=== PATIENT | female | born 1950 | race Caucasian/White ===

== ENCOUNTER 2016-08-27 17:52 | Observation (INO) | payer MEDICARE, OTHER ==
--- NOTE | 2016-08-27 18:50 | EDPHY ---
H & P Stated Complaint: blk tarry stool for 2 days Time Seen by Provider: 08/27/16 18:49 - Personal History Current Tetanus/Diphtheria Vaccine: Yes Current Tetanus Diphtheria and Acellular Pertussis (TDAP): Yes Tetanus Vaccine Date: 2014 - Medical/Surgical History Hx Asthma: No Hx Chronic Respiratory Disease: Yes Hx Diabetes: No Hx Cardiac Disease: Yes Hx Renal Disease: Yes Hx Cirrhosis: No Hx Alcoholism: No Hx HIV/AIDS: No Hx Splenectomy or Spleen Trauma: No Other PMH: PMH- HTN, CHRONIC PAIN TO BACK/KNEES, THORACIC OUTLET SYNDROME (86), "SLOW KIDNEYS". PSH- RIB REMOVED, Right ankle plates placed, - Social History Smoking Status: Never smoked Constitutional: Initial Vital Signs Temperature (C) 36.6 C 08/27/16 17:54 Heart Rate 102 H 08/27/16 17:54 Respiratory Rate 16 08/27/16 17:54 Blood Pressure 150/82 H 08/27/16 17:54 O2 Sat (%) 92 08/27/16 17:54 O2 Delivery Mode Room Air Allergies/Adverse Reactions: Sulfa (Sulfonamide Antibiotics) Allergy (Mild, Verified 07/24/15 17:15) Rash Penicillins Allergy (Verified 11/19/14 12:33) phenol Allergy (Verified 11/19/14 12:33) Home Medications: Medication Instructions Recorded Aspirin/Caffeine [Jovanny Back & 2 each PO TID PRN 11/19/14 Body Caplet] Melatonin [Melatonin 3 MG (*)] 3 - 9 mg PO HS PRN 07/14/15 Pseudoephedrine HCl [Sudafed 30mg 60 mg PO Q4 PRN 07/14/15 (OTC)] Methocarbamol [Robaxin 750 mg (*)] 750 mg PO Q8 PRN #20 tab 07/17/15 Multivitamins [Multivitamin (*)] 1 each PO DAILY 07/24/15 Bee-3 Fatty Acids [Fish Oil 1000 1,000 mg PO DAILY 07/24/15 mg (*)] Tears/Hypromellose [Natural 1 - 2 drops EACHEYE DAILY PRN 07/24/15 Balance] Acetaminophen [Tylenol 325mg (*)] 650 mg PO Q4 PRN #0 tab 07/27/15 Ascorbic Acid [Vitamin C 500 mg 500 mg PO DAILY #0 tab 07/27/15 (*)] Furosemide [Lasix] 40 mg PO DAILY #30 tab 07/27/15 Iron/Docusate Sodium 1 each PO BIDMEAL #0 tab 07/27/15 [Dariela-Sequels 50 mg] Lisinopril [Zestril 5 mg (*)] 5 mg PO DAILY #30 tab 07/27/15 Potassium Chloride [Klor-Con 10] 10 meq PO DAILY #30 tablet.er 07/27/15 Medical Decision Making ED Course/Re-evaluation: CHIEF COMPLAINT: Black tarry diarrhea. HISTORY OF PRESENT ILLNESS: The patient is a 65-year-old female who presents with black tarry stool for 2 days and diarrhea today. She denies vomiting or abdominal pain. She did have an episode of abdominal pain 4 days ago that resolved. She takes 1000mg Aspirin once or twice a day. REVIEW OF SYSTEMS: A 10 point review of systems was performed and is negative with the exception of the elements mentioned in the history of present illness. PHYSICAL EXAM: HR, BP, O2 Sat, RR. Temp noted General Appearance: Alert, well hydrated, appropriate, and non-toxic appearing. Head: Atraumatic without scalp tenderness or obvious injury Eyes: Pupils equal, round, reactive to light and accommodation, EOMI, no trauma , no injection. Ears: Clear bilaterally, no perforation, normal landmarks Nose: Atraumatic, no rhinorrhea, clear. Throat: There is no erythema or exudates, no lesions, normal tonsils, mucus membranes moist. Neck: Supple, 2+ carotid upstroke, nontender, no lymphadenopathy. Respiratory: No retractions, no distress, no wheezes, and no accessory muscle use. Lungs are clear to auscultation bilaterally. Cardiovascular: Regular rate and rhythm, no murmurs, rubs, or gallops. Bilateral carotid, radial, dorsalis pedis, and posterior tibial pulses intact. Good capillary refill all extremities. Gastrointestinal: Abdomen is soft, nontender, non-distended, no masses, no rebound, no guarding, no peritoneal signs. Musculoskeletal: Normal active ROM of all extremities, atraumatic. Neurological: Alert, appropriate, and interactive. The patient has normal DTRs and non-focal cranial nerves, motor, sensory, and cerebellar exam. Skin: No rashes, good turgor, no nodules on palpation. Past medical history: HTN, chronic pain, thoracic outlet syndrome, Past surgical history: Rib removal, Right ankle plates placed. Family history: Non-contributory. Social history:Here alone. DIAGNOSTICS/PROCEDURES/CRITICAL CARE TIME: DIFFERENTIAL DIAGNOSIS: The differential diagnosis for the patient's upper GI bleeding included but was not limited to ulcer disease, gastritis, Seda-Sanabria tear, and esophageal varices. MEDICAL DECISION MAKING: The patient is a 65 y/o female presenting with 2 days of black stool and diarrhea today. She reports that at least over last week she was taking 1000mg Aspirin tablets once or twice per day. I have a high suspicion for upper GI bleed. A stool sample will be sent when she is able. An IV was established and labs ordered. 1L IV saline administered for hydration in addition to 40mg IV Protonix. Patient shows 10-15 RBCs in her urine but there is no indication for treatment of this. Patient's CBC is normal. Specifically, her Hct is negative. 194: Consulted with Dr. Savage, hospitalist. She accepts admission. - Data Points Laboratory Results: Laboratory Results 08/27/16 18:18 08/27/16 08/27/16 18:18 17:00 WBC 9.53 H 10^3/uL (3.80-9.50) RBC 4.78 10^6/uL (4.18-5.33) Hgb 12.5 L g/dL (12.6-16.3) Hct 40.2 % (38.0-47.0) MCV 84.1 fL (81.5-99.8) MCH 26.2 L pg (27.9-34.1) MCHC 31.1 L g/dL (32.4-36.7) RDW 14.5 % (11.5-15.2) Plt Count 347 10^3/uL (150-400) MPV 10.1 fL (8.7-11.7) Neut % (Auto) 71.4 % (39.3-74.2) Lymph % (Auto) 22.8 % (15.0-45.0) [place] % (Auto) 3.8 L % (4.5-13.0) Eos % (Auto) 0.9 % (0.6-7.6) Baso % (Auto) 0.6 % (0.3-1.7) Nucleat RBC Rel Count 0.0 % (0.0-0.2) Absolute Neuts (auto) 6.80 H 10^3/uL (1.70-6.50) Absolute Lymphs (auto) 2.17 10^3/uL (1.00-3.00) Absolute Monos (auto) 0.36 10^3/uL (0.30-0.80) Absolute Eos (auto) 0.09 10^3/uL (0.03-0.40) Absolute Basos (auto) 0.06 10^3/uL (0.02-0.10) Absolute Nucleated RBC 0.00 10^3/uL (0-0.01) Immature Gran % 0.5 % (0.0-1.1) Immature Gran # 0.05 10^3/uL (0.00-0.10) PT 13.3 SEC (12.0-15.0) INR 1.02 (0.83-1.16) APTT 34.3 SEC (23.0-38.0) Sodium Pending Potassium Pending Chloride Pending Carbon Dioxide Pending Anion Gap Pending BUN Pending Creatinine Pending Estimated GFR Pending Glucose Pending Calcium Pending Total Bilirubin Pending Conjugated Bilirubin Pending Unconjugated Bilirubin Pending AST Pending ALT Pending Alkaline Phosphatase Pending Total Protein Pending Albumin Pending Lipase Pending Urine Color YELLOW Urine Appearance CLEAR Urine pH 8.0 H (5.0-7.5) Ur Specific Justice 1.019 (1.002-1.030) Urine Protein NEGATIVE (NEGATIVE) Urine Ketones NEGATIVE (NEGATIVE) Urine Blood 2+ H (NEGATIVE) Urine Nitrate NEGATIVE (NEGATIVE) Urine Bilirubin NEGATIVE (NEGATIVE) Urine Urobilinogen NEGATIVE EU (0.2-1.0) Ur Leukocyte Esterase NEGATIVE (NEGATIVE) Urine RBC 10-15 H /hpf (0-3) Urine WBC 1-3 /hpf (0-3) Ur Epithelial Cells TRACE /lpf (NONE-1+) Urine Mucus TRACE /lpf (NONE-1+) Ur Culture Indicated? NOT INDICATED (NI) Urine Glucose NEGATIVE (NEGATIVE) Departure - Departure Disposition: [facility] Inpatient Acute Clinical Impression: Upper GI bleed Condition: Fair Report Scribed for: Shlomo Alexander Report Scribed by: Trever Jaime Date of Report: 08/27/16 Time of Report: 18:51
[2016-08-27] MEDS ORDERED: NS 1,000 ML IV ONE (18:51)
[2016-08-27] MEDS ORDERED: PANTOPRAZOLE SODIUM 40 MG in NS 100 ML IV ONE (19:03)
[2016-08-27 19:13] LABS: COLOR YELLOW; LEUKOCYTE ESTERASE,URINE NEGATIVE (NEGATIVE); NITRITE,URINE NEGATIVE (NEGATIVE)
[2016-08-27 19:19] LABS: MUCUS TRACE /lpf (NONE-1+)
[2016-08-27] MEDS ORDERED: PANTOPRAZOLE SODIUM 40 MG VIAL ONE (19:19)
[2016-08-27] MEDS ORDERED: NS 100 ML BAG IV ONE (19:20)
[2016-08-27 19:29] LABS: % IMMATURE GRANULYOCYTES 0.5 % (0.0-1.1); ABSOLUTE IMMATURE GRANULOCYTES 0.05 10^3/uL (0.00-0.10); ADD DIFF? NO; ADD MORPH? NO; ADD SCAN? NO; ATYPICAL LYMPHOCYTE FLAG 0 (0-99); FRAGMENT RBC FLAG 0 (0-99); HEMATOCRIT 40.2 % (38.0-47.0); HEMOGLOBIN 12.5 g/dL (12.6-16.3); LEFT SHIFT FLG 0 (0-99); LIPEMIA HEMOLYSIS FLAG 80 (0-99); MEAN CELL HEMOGLOBIN 26.2 pg (27.9-34.1); MEAN CELL HEMOGLOBIN CONCENTR. 31.1 g/dL (32.4-36.7); MEAN CELL VOLUME 84.1 fL (81.5-99.8); MEAN PLATELET VOLUME 10.1 fL (8.7-11.7); PLATELET CLUMPS FLAG 0 (0-99); PLATELET COUNT 347 10^3/uL (150-400); RED BLOOD CELL COUNT 4.78 10^6/uL (4.18-5.33); RED CELL DISTRIBUTION WIDTH 14.5 % (11.5-15.2)
[2016-08-27 19:38] LABS: INR 1.02 (0.83-1.16); PROTIME(PATIENT) 13.3 SEC (12.0-15.0)
[2016-08-27 19:39] LABS: APTT 34.3 SEC (23.0-38.0)
[2016-08-27 19:43] LABS: ALANINE AMINOTRANSFERASE 27 IU/L (9-52); ALBUMIN 4.1 g/dL (3.5-5.0); ALKALINE PHOSPHATASE 111 IU/L (38-126); ANION GAP 13 mEq/L (8-16); ASPARTATE AMINOTRANSFERASE 21 IU/L (14-46); BILIRUBIN,TOTAL 0.6 mg/dL (0.1-1.4); BILIRUBIN-CONJUGATED 0.2 mg/dL (0.0-0.5); BILIRUBIN-UNCONJUGATED 0.4 mg/dL (0.0-1.1); CALCIUM 9.5 mg/dL (8.5-10.4); CARBON DIOXIDE 25 mEq/l (22-31); CHLORIDE 107 mEq/L (97-110); CREATININE 0.7 mg/dL (0.6-1.0); GLOMERULAR FILTRATION RATE > 60; GLUCOSE 104 mg/dL (70-100); POTASSIUM 4.3 mEq/L (3.5-5.2); SODIUM 145 mEq/L (134-144); TOTAL PROTEIN 7.1 g/dL (6.3-8.2)
[2016-08-27] MEDS ORDERED: NON-FORMULARY NEW DRUG (Tears/Hypromellose [Natural Balance] 0 DROPS) EACHEYE PRN (21:02)
--- NOTE | 2016-08-27 21:35 | GHP ---
[f rep st] HISTORY AND PHYSICAL DATE OF ADMISSION: 08/27/2016 CHIEF COMPLAINT: Black tarry stools. HISTORY OF PRESENT ILLNESS: The patient is a 65-year-old with multiple medical issues, including t-controlled diabetes, hypertension and arthritis, who comes in with black tarry stools. She states she has fairly severe osteoarthritis and chronic pain and she takes an aspirin compound that has 1000 mg of aspirin and caffeine up to twice a day. She is unable to tolerate nonsteroidal anti-inflammat ories because of swelling. She also notes she has been under a lot of stress lately. She lives up [place] n a [place] in [place] and told she has to move. Over the last 2 days, she has noted black tarry s tools and some slight epigastric pain and just to the left of center. This is associated with some b elching. She has had no emesis, no hematemesis, and no bright red blood per rectum. She denies weig ht changes, fevers, chills, chest pain, shortness of breath. She has chronic lower extremity edema w hich is unchanged and no urinary symptoms. REVIEW OF SYSTEMS: A 10-point review of systems was done and is negative except as stated in the HPI . PAST MEDICAL HISTORY: 1. Type 2 diabetes, diet controlled. 2. History of chronic anemia thought secondary to menorrhagia. Her last hemoglobin prior to this [facility] was normal at 15. 3. Morbid obesity. 4. Osteoarthritis involving multiple joints with chronic pain. 5. Chronic edema. PAST SURGICAL HISTORY: Includes a rib resection. FAMILY HISTORY: Reviewed and noncontributory. SOCIAL HISTORY: She is . She does not smoke and drinks alcohol occasionally. CURRENT MEDICATIONS: Include Lasix 40 mg daily and Robaxin 500 as needed. She takes Jovanny [employer] in Relief as noted in the HPI, iron, melatonin, potassium, and vitamin C. ALLERGIES: Penicillin. PHYSICAL EXAMINATION: VITAL SIGNS: She is afebrile. Heart rate 102, blood pressure 150/82, respira tions 16. She is 92% on room air. GENERAL: She is an obese 65-year-old woman. She is in no obviou s distress. She is alert and oriented. HEENT: Pupils are equal. Extraocular movements intact. Mu cous membranes are slightly dry. Oropharynx is clear. NECK: Supple. No adenopathy. No carotid br uits. HEART: Regular rate and rhythm. No murmurs, gallops, or rubs. LUNGS: Clear to auscultation . No wheeze, rhonchi, or rales. ABDOMEN: Obese, soft. No obvious tenderness or rebound or guardin g. Positive bowel sounds. EXTREMITIES: Positive edema bilaterally. MUSCULOSKELETAL: No obvious j oint deformities, but she is obese. NEUROLOGICALLY: She is grossly intact. SKIN: No rash. LABORATORY DATA: CBC shows a white count of 9.5, hemoglobin 12.5 and platelet count 347. Electrolyt es normal. BUN slightly elevated at 27. LFTs are normal. Urinalysis is unremarkable except for christian e mild hematuria. ASSESSMENT AND PLAN: 1. Tarry stools, high suspicion for upper GI (gastrointestinal) bleed given her chronic aspirin use. It does not appear that she has had a previous GI (gastrointestinal) workup after reviewing her out patient chart. Plan will be to admit her to the [facility]. She is hemodynamically stable. We will gentl y hydrate her overnight, place her on a PPI (proton pump inhibitor). I have consulted Dr. Mick granados and talked with him about the patient who plans on doing an endoscopy in the a.m. I will check ser ial hemoglobins and transfuse as needed, although currently her blood pressure is high and she does n ot appear unstable. 2. Mild hematuria. Will recheck this as an outpatient for followup once she is over her acute issue s. 3. Diet-controlled diabetes. 4. Chronic edema, currently on Lasix. Patient has held this when she started noting tarry stools. 5. DVT prophylaxis. Given likely acute bleeding, will defer chemical prophylaxis and start her on S CDs (sequential compression devices) if she has greater than 24-hour hospital stay. /[id number]/MODL
[2016-08-27 21:40] LABS: OCCULT BLOOD FECES POSITIVE (NEGATIVE)
[2016-08-27] MEDS ORDERED: MELATONIN 3 MG TAB PO SCH (23:00)
[2016-08-27] MEDS: PANTOPRAZOLE SODIUM 40 MG in NS 100 ML IV SCH (23:32)
[2016-08-27] MEDS: NS 1,000 ML IV SCH (23:32)
[2016-08-28 00:08] LABS: FECES WBC NONE SEEN (NONE SEEN)
[2016-08-28 00:09] LABS: FECES RBC 1+ (NONE SEEN); O/P DIRECT NONE SEEN (NONE SEEN)
[2016-08-28 00:53] LABS: HEMATOCRIT 33.7 % (38.0-47.0); HEMOGLOBIN 10.3 g/dL (12.6-16.3)
[2016-08-28 05:13] LABS: HEMATOCRIT 34.1 % (38.0-47.0); HEMOGLOBIN 10.4 g/dL (12.6-16.3)
[2016-08-28 05:42] LABS: ANION GAP 9 mEq/L (8-16); CALCIUM 8.8 mg/dL (8.5-10.4); CARBON DIOXIDE 24 mEq/l (22-31); CHLORIDE 111 mEq/L (97-110); CREATININE 0.7 mg/dL (0.6-1.0); GLOMERULAR FILTRATION RATE > 60; GLUCOSE 102 mg/dL (70-100); POTASSIUM 4.2 mEq/L (3.5-5.2); SODIUM 144 mEq/L (134-144)
[2016-08-28 08:07] VITALS: TEMP 97.9
[2016-08-28 08:28] LABS: CLOSTRIDIUM DIFFICILE DNA NEGATIVE (NEGATIVE)
[2016-08-28] MEDS: PANTOPRAZOLE SODIUM 40 MG in NS 100 ML IV SCH (09:15)
[2016-08-28 09:19] LABS: HEMATOCRIT 33.9 % (38.0-47.0); HEMOGLOBIN 10.6 g/dL (12.6-16.3)
[2016-08-28] MEDS: NS 1,000 ML IV SCH (09:23)
--- NOTE | 2016-08-28 10:11 | GCON ---
[f rep st] CONSULTATION DATE OF CONSULTATION: 08/28/[address] Savage: Thank you very kindly for asking me to evaluate this patient for melena. She is a pleasant, morbidly obese and diabetic 65-year-old female with underlying osteoarthritis, who presents to the ER with up per abdominal pain, some heartburn and dark black stools that have been present for about 3 days. He r stool frequency has been increased from her baseline of 2 bowel movements a day to between 3 and 4. The stool has been more loose, urgent, and dark and tarry. There has been upper abdominal discomfo rt described as gas pain that has been present about 3 days before the onset of the melena, and she h as also been describing some reflux symptoms which are unusual for her. She treats her osteoarthriti s symptoms with an aspirin compound with caffeine that contains a 1000 mg of aspirin. She has been t aking this up to twice a day. She has not had a previous gastrointestinal bleed. She denies any hea vy menstrual periods. There has been no bright red or maroon hematochezia. She denies nausea, vomit ing or hematemesis. Her initial hematocrit in the emergency room when she presented was 40.2, and phelan s cruzito this morning at 33.9. Her platelets and white count are normal. Her INR is 1.02. Her BUN i s elevated 27, with a normal creatinine. I am asked to assist with further evaluation and management . PAST MEDICAL HISTORY: Significant for morbid obesity, diabetes, chronic NSAID use, osteoarthritis. PAST SURGICAL HISTORY: Unremarkable. FAMILY HISTORY: Negative for anemia, bleeding disorders or peptic ulcer disease. SOCIAL HISTORY: The patient is . She lives in [place]. There is no tobacco or alcohol or aquino bstance abuse. MEDICATIONS: Include Lasix 40 mg a day, Robaxin 500 mg as needed for musculoskeletal pain, Jovanny Sandra ect Pain Relief 1000 mg of aspirin with caffeine up to twice a day, iron supplementation, melatonin, potassium and vitamin C. ALLERGIES: Penicillin. REVIEW OF SYSTEMS: CONSTITUTIONAL: Denies fatigue, malaise, night sweats, weight loss or fever. HE ENT: Denies headache, visual disturbances, sore throat, rhinorrhea or epistaxis. PULMONARY: No jorge rtness of breath. Denies dyspnea with exertion. Denies orthopnea. CARDIOVASCULAR: Denies chest pa in or palpitations. GASTROINTESTINAL: Per the HPI, otherwise negative. RHEUMATOLOGIC: Chronic tu nt pain in multiple locations including knees, hips, back, shoulders and hands. Denies joint swellin g or warmth. Denies joint deformity. DERMATOLOGIC: Negative for rash, pruritus or jaundice. ENDOC RINE: Denies heat or cold intolerance. No polyuria or polydipsia. GYNECOLOGIC: No vaginal bleedin g or discharge. GENITOURINARY: No flank pain or hematuria. PHYSICAL EXAM: VITAL SIGNS: Blood pressure 124/57 with a mean arterial pressure of 79, heart rate 8 8, respirations 16, oxygenation 93% on room air, temperature is 36.6. GENERAL: Comfortable, obese f emale, in no acute distress. Alert and able to provide her own history. HEENT: Normocephalic, atra umatic. Short neck. No carotid bruits or thyromegaly. LUNGS: Distant breath sounds throughout but no focal rales or wheeze. No accessory muscle use for respiration. Seems comfortable without dyspn ea. CARDIOVASCULAR: Regular rate and rhythm. No murmur rub or gallop. Heart sounds are distant. ABDOMEN: Obese and soft. No organomegaly, ascites, rebound or guarding. No surgical scars. EXTREM ITIES: Lower extremity edema that is pitting bilaterally. Pulses are 1+ dorsalis pedis. Negative f or calf tenderness. SKIN: Warm and dry without jaundice or cyanosis. NEUROLOGIC: Alert to person, place, and time. Cranial nerves grossly normal. Motor is nonfocal with good strength. Gait is not assessed/ LABORATORY DATA: Database includes hematocrit 33.9, from admission hematocrit of 40.2, white blood c ount 9.5, platelets 347. INR 1.02 with a PT of 13.3. Sodium 144, potassium 4.2, chloride 111, bicar bonate 24, BUN 21, creatinine 0.7, glucose 102, total bilirubin 0.6, with an alkaline phosphatase 111 , AST 21, ALT 27, albumin 4.1, lipase 57. Clostridium difficile toxin negative. H pylori IgG negati ve. Stool is positive for occult blood. IMPRESSION: 1. Upper abdominal pain, epigastric and left upper quadrant. 2. Heartburn. 3. Anemia secondary to what seems to be acute blood loss. 4. Melena. 5. Nonsteroidal anti-inflammatory drug use. 6. Morbid obesity. 7. Diabetes. RECOMMENDATIONS: 1. N.p.o. 2. Serial hematocrit. 3. Type and hold 2 units of packed cells. 4. Continuous Protonix infusion. 5. EGD with anesthesia assistance. The patient is at high risk for endoscopic intervention due to h er morbid obesity, body habitus and short neck. She is also on chronic NSAIDs and has underlying angie betes. All of these variables make endoscopy high risk for her and she will need anesthesia assistan mónica, who I have consulted to work with her for assisting with anesthesia supported EGD today. 6. Further recommendations to follow her endoscopic evaluation. /[id number]/MODL
[2016-08-28 10:42] LABS: O/P CONCENTRATION NONE SEEN (NONE SEEN)
[2016-08-28] MEDS ORDERED: MIDAZOLAM 2 MG/2 ML VIAL ONE (10:48)
[2016-08-28] MEDS ORDERED: PROPOFOL 200 MG/20 ML VIAL ONE (11:00)
--- NOTE | 2016-08-28 12:01 | GPN ---
[f rep st] PROCEDURE NOTE DATE OF PROCEDURE: 08/28/2016 PROCEDURE: Esophagogastroduodenoscopy. INDICATION: Melena, longstanding aspirin use, anemia secondary to acute blood loss. HAMMER SETTER: Endoscopy staff: Ree. ANESTHESIA: Dr. Johnson. COMPLICATIONS: None. ESTIMATED BLOOD LOSS: None. Consent was obtained from the patient after the risks and benefits, upper endoscopy and general anest hesia were discussed in detail. All questions were answered and informed consent was obtained. The patient was competent to make her own medical decisions. Monitoring is continuous per anesthesia pro tocol. Medications are general anesthesia via propofol monitored by Anesthesia. DESCRIPTION OF PROCEDURE: The patient was placed into the left lateral decubitus position with the h ead of the bed at 30 degrees. The oral bite block was placed. Monitoring was ensued. Oxygen was gi oli via nasal cannula. Propofol was given and the patient was appropriately sedated. When she was c omfortable, the Olympus endoscope was placed into the oropharynx which was endoscopically normal. Th e tubular esophagus was intubated easily under direct visualization and ultimately endoscope advanced into the 2nd portion of the duodenum. All mucosal surfaces were examined in their entirety includin g a retroflexed view of the gastric cardia. FINDINGS: The esophagus exhibited a nonocclusive Schatzki's ring and a very small scar at the GE alexa ction. With a little bit of retraction, it looked like a previous ulcer that had well healed. There was no active stigmata of bleeding from the scar site and no active ulceration. The remaining esoph rene was normal. The GE junction was at 38 cm and was a regular Z-line. The stomach exhibited multifocal peptic ulceration in the antrum. This was in a circumferential dist ribution around the pylorus. The deepest ulcer was about 1.2 cm x 1 cm in size. There were smaller shallow erosions and ulcerations around this deeper ulcer. There was no blood within the stomach wit h only bile seen. The ulcers were clean based without any stigmata of bleeding. The pylorus was nor mal and patent, as well as the pyloric channel. The duodenum was normal to the 2nd portion. There was some mild congestion and erythema within the d uodenal sweep, but no ulceration or active disease was seen in this area. The esophagus was normal other than a nonocclusive Schatzki ring and a previous scar may be from [facility] er a pill-induced esophagitis or reflux. The stomach exhibited a 1.2 x 1 cm clean based ulcer in the pre-pyloric area of the antrum with surro unding circumferential shallow ulcerations and injury without erosions. All these lesions were clean based without active bleeding. Bile was seen through the stomach. The pyloric channel was normal. There was mild congestion and erythema in the duodenal sweep, but there was no active ulceration. Th e remaining duodenum was normal. IMPRESSION: 1. I believe her melena and anemia are secondary to aspirin-induced peptic ulcer disease, predominan tly gastric ulceration and erosion. 2. Given her negative H pylori serology I did not believe these are H pylori related. 3. We can advance diet today as tolerated. 4. Discontinue serial hematocrits. 5. Begin twice daily proton-pump inhibitor therapy currently with pantoprazole 40 mg twice daily wit h bridge to whatever is most affordable by her insurance with treatment for 8 weeks. 6. Discontinue all aspirin products and NSAIDs. 7. Repeat upper endoscopy in 8 weeks to demonstrate healing of the gastric ulcerations. 8. The patient can be discharged home today if she is feeling well post procedure. /[id number]/MODL
[2016-08-28 13:18] VITALS: BP 122/63; PULSE 84; RESP 18; O2SAT 94
--- NOTE | 2016-08-28 14:41 | GDS ---
[f rep st] DISCHARGE SUMMARY DISCHARGE DIAGNOSES: 1. 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 2. Controlled type 2 diabetes mellitus. 3. Osteoarthritis. 4. Morbid obesity. OBSERVATION COURSE AND STAY BY PROBLEM: Melena due to aspirin-induced peptic ulcer disease: Patient was admitted to the hospital where she was seen in consultation [facility] who performed upper endoscopy which showed aspirin-induced peptic ulcer disease and gastric ulc erations and erosions that were not actively bleeding. The patient was subsequently recommended to s top aspirin. She was placed on b.i.d. Protonix which she should complete for 2 months followed by on ce a day treatment. She should also avoid NSAIDs. For osteoarthritis pain she was given a trial of Toradol. PHYSICAL EXAM ON DAY OF DISCHARGE: VITAL SIGNS: The patient was examined. Vital signs were stable. ABDOMEN: Soft, nontender, nondistended. No guarding or rebound tenderness. PROCEDURES DONE THIS HOSPITAL STAY: Upper endoscopy done 08/28/2016, refer to report. DISCHARGE MEDICATIONS: Please refer to discharge medication reconciliation in [facility] for full deta ils. Below is a preliminary list. New medications on hospital discharge: Protonix 40 mg twice daily, Ultram 50 mg p.o. q.i.d. p.r.n. p ain. DISCHARGE INSTRUCTIONS: The patient will be discharged from the hospital where she will need followu p of her biopsy results done by Dr. Horn. She should discuss further management of her osteoarthrit is pain with her primary care provider. /[id number]/MODL
[2016-08-28 18:10] LABS: O/P TRICHROME NONE SEEN (NONE SEEN)
[2016-08-28] MEDS ORDERED: PANTOPRAZOLE SODIUM 40 MG TAB PO SCH (21:00)
== END 2016-08-28 16:15 | disposition home or self-care (01) ==
LOC: F1N 21:41
PROVIDERS: ADMIT Internal Medicine; ATTEND Family Medicine
PROC: 0DJ68ZZ Inspection of Stomach, Via Natural or Artificial Opening Endoscopic (ICD-10-PCS; principal; 2016-08-28 10:30)
PROC: 0DJ08ZZ Inspection of Upper Intestinal Tract, Via Natural or Artificial Opening Endoscopic (ICD-10-PCS; principal; 2016-08-28 10:30)
DX: K25.7 Chronic gastric ulcer without hemorrhage or perforation (principal); T39.015A Adverse effect of aspirin, initial encounter; E11.9 Type 2 diabetes mellitus without complications; M19.90 Unspecified osteoarthritis, unspecified site; E66.01 Morbid (severe) obesity due to excess calories
CPT/HCPCS: 43200; G0378; J2250; J2704

== ENCOUNTER 2017-02-13 17:54 | Emergency (ER) | payer OTHER ==
[2017-02-13 18:01] VITALS: TEMP 98.4
--- NOTE | 2017-02-13 19:08 | EDPHY ---
H & P Stated Complaint: Rolling chair came out from under her on Mon;aches all over, no LOC/head inj Time Seen by Provider: 02/13/17 18:42 HPI/ROS: CHIEF COMPLAINT: fall out of chair HISTORY OF PRESENT ILLNESS: 66-year-old female presents to the emergency department complaining of left-sided back pain and left-sided neck pain after falling out of a rolling chair 2 days ago. Patient states she bent forward to get out of the chair and it slipped out from underneath her. She states she landed on her left side of butt and back. Patient reports the chair struck her in the left side of the head. She denies loss of consciousness, remembers the entire accident. Patient reports feeling "woozy" immediately after the accident. This lasted a couple minutes. Patient states her back pain and neck pain started yesterday and have continued today. She denies loss of control of her bowel or bladder, no numbness or tingling in her arms or legs. She denies chest pain, abdomen pain or pelvis pain. She denies other complaints. Patient reports she is taking Tylenol which is helping mildly. REVIEW OF SYSTEMS: A comprehensive 10 point review of systems is otherwise negative aside from elements mentioned in the history of present illness. 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 PSH- RIB REMOVED, Right ankle plates placed, - Social History Smoking Status: Never smoked - Physical Exam Exam: General Appearance: Alert, no distress, talking appropriately, comfortable. Head: Atraumatic without scalp tenderness or obvious injury Eyes: Pupils equal, round, reactive to light, EOMI, no trauma, no injection. Ears: Clear bilaterally, no perforation, no hemotympanum Nose: Atraumatic, no rhinorrhea, no septal hematoma Neck: The midline cervical spine is non-tender and there is no pain or neurologic deficits with active range of motion. Left-sided paraspinal cervical tenderness to palpation Cardiovascular: Heart is regular rate and rhythm without murmur. Chest: Atraumatic, equal bilateral breath sounds. Chest is non-tender to palpation. Gastrointestinal: obese, Soft, non-tender, non-distended. No rebound, guarding , or peritoneal signs. There is no evidence of external or internal trauma. Back:There is no midline thoracic or lumbar tenderness, left-sided paraspinal lumbar tenderness to palpation Extremities: All extremities are non-tender to palpation without obvious deformity. There is full active range of motion of the joints. Neurological: The patient has normal DTRs and non-focal Cranial nerves, motor, sensory, and cerebellar exam Skin: No lacerations, cervantes, or abrasions. Constitutional: Initial Vital Signs Temperature (C) 36.9 C 02/13/17 17:57 Heart Rate 98 02/13/17 17:57 Respiratory Rate 18 02/13/17 17:57 Blood Pressure 131/95 H 02/13/17 17:57 O2 Sat (%) 97 02/13/17 17:57 Allergies/Adverse Reactions: acetaminophen [From Tylenol] Allergy (Mild, Verified 02/13/17 17:56) Other-Enter Comments ibuprofen Allergy (Mild, Verified 02/13/17 17:56) Other-Enter Comments Sulfa (Sulfonamide Antibiotics) Allergy (Mild, Verified 02/13/17 17:56) Rash Penicillins Allergy (Verified 02/13/17 17:56) phenol Allergy (Verified 02/13/17 17:56) Home Medications: Medication Instructions Recorded Pseudoephedrine HCl [Sudafed 30mg 60 mg PO Q4 PRN 07/14/15 (OTC)] Tears/Hypromellose [Natural 1 - 2 drops EACHEYE DAILY PRN 07/24/15 Balance] Potassium Chloride [Klor-Con 10] 10 meq PO DAILY #30 tablet.er 07/27/15 Furosemide [Lasix 40 MG (*)] 40 mg PO DAILY 08/27/16 Pantoprazole Sodium [Protonix 40mg 40 mg PO BID #60 tab 08/28/16 (*)] traMADol HCL [Ultram] 50 mg PO QID PRN #30 tablet 08/28/16 Methocarbamol [Robaxin-750] 750 mg PO QID PRN #12 tablet 02/13/17 Medical Decision Making ED Course/Re-evaluation: 66-year-old female presents complaining of left-sided neck pain and left-sided low back pain after falling out of a chair 2 days ago. Patient has no neurovascular compromise, she has no midline tenderness. She likely has a cervical strain and lumbar strain. Patient reports she has taken Robaxin in the past which has helped. She has been given a prescription for Robaxin. Patient is neurologically intact, no evidence of concussion. Patient agrees to follow up with her primary care doctor on Saturday or Saturday. She is given strict return precautions for any new symptoms or concerns. Differential Diagnosis: The differential diagnosis for the patient's trauma included but was not limited to intracranial injury, long bone and pelvic bone fractures, spinal injury, intra-abdominal injury, and intra-thoracic injury. Departure - Departure Disposition: Home, Routine, Self-Care Clinical Impression: Lumbar strain Qualifiers: Encounter type: initial encounter Qualified Code(s): S39.012A - Strain of muscle, fascia and tendon of lower back, initial encounter Cervical strain Qualifiers: Encounter type: initial encounter Qualified Code(s): S16.1XXA - Strain of muscle, fascia and tendon at neck level, initial encounter Minor head injury without loss of consciousness Qualifiers: Encounter type: initial encounter Qualified Code(s): S09.90XA - Unspecified injury of head, initial encounter Condition: Good Instructions: Cervical Strain (ED), Low Back Strain (ED), Head Injury (ED) Additional Instructions: Ice or heat whichever feels better, take 600 mg of ibuprofen every 8 hours with food for 3-5 days, you can also take 650 mg of Tylenol every 8 hours. Take 1 Robaxin every 6-8 hours as needed for muscle spasms. Follow up with your primary care doctor on Saturday or Saturday for re-evaluation. Return to the emergency department for any forceful vomiting, confusion, altered gait, any new symptoms or concerns. Referrals: Rachell Bee MD [Primary Care Provider] - As per Instructions Prescriptions: Methocarbamol [Robaxin-750] 750 mg PO QID PRN #12 tablet PRN Reason: Spasms
[2017-02-13 19:20] VITALS: BP 124/68; PULSE 79; RESP 16; O2SAT 94
== END 2017-02-13 19:23 | disposition home or self-care (01) ==
DX: S39.012A Strain of muscle, fascia and tendon of lower back, initial encounter (principal); S16.1XXA Strain of muscle, fascia and tendon at neck level, initial encounter; S09.90XA Unspecified injury of head, initial encounter; I10 Essential (primary) hypertension; W07.XXXA Fall from chair, initial encounter; Y99.8 Other external cause status; Y93.89 Activity, other specified

== ENCOUNTER → 2017-02-19 | Outpatient (CLI) | payer OTHER | LOC: BMCIMAGING 13:58 | PROVIDERS: ATTEND Internal Medicine | DX: M53.82 Other specified dorsopathies, cervical region (principal); M54.6 Pain in thoracic spine; E11.69 Type 2 diabetes mellitus with other specified complication ==